=== PATIENT | female | born 1965 | race Caucasian/White ===

== ENCOUNTER 2020-09-12 06:29 | Outpatient (CLI) | payer BC ==
[~2020-09-12] VITALS: Ht 167.6 cm; Wt 79.5 kg
[2020-09-12] VITALS (10 sets, daily range): BP systolic 90–114; BP diastolic 61–78
[2020-09-12] MEDS ORDERED: LIDOCAINE 1% Multi-Dose 20 ML VIAL. ONE (07:45)
[2020-09-12] MEDS ORDERED: IODIXANOL 320 MG/ML 100 ML VIAL. ONE (07:45)
[2020-09-12] MEDS ORDERED: CETI10TA74 PO (07:59)
[2020-09-12] MEDS ORDERED: FLUT9.9S NS (07:59)
[2020-09-12] MEDS ORDERED: SULI150T PO (07:59)
[2020-09-12] MEDS ORDERED: LEVO50TA5 PO (07:59)
[2020-09-12] MEDS ORDERED: MAGN250T2 PO (07:59)
[2020-09-12] MEDS ORDERED: METO-239 PO (07:59)
[2020-09-12] MEDS ORDERED: ASCO100T4 PO (07:59)
[2020-09-12] MEDS ORDERED: COD1CAPS6 PO (07:59)
[2020-09-12 08:09] LABS: CALCIUM 9.2 mg/dL (8.5-10.1); CREATININE 0.8 mg/dL (0.6-1.0)
[2020-09-12] MEDS ORDERED: MIDAZOLAM HCL/PF 2 MG/2 ML VIAL. ONE ×2 (08:12→08:48)
[2020-09-12 08:15] LABS: PROTHROMBIN TIME PATIENT 12.3 SEC (11.7-14.0)
[2020-09-12] MEDS ORDERED: LIDOCAINE 1% Multi-Dose 20 ML VIAL. INJ ONE (08:15)
[2020-09-12] MEDS ORDERED: MIDAZOLAM HCL/PF 2 MG/2 ML VIAL. IV ONE (08:15)
[2020-09-12] MEDS ORDERED: IODIXANOL 320 MG/ML 100 ML VIAL. IART ONE (08:15)
[2020-09-12] MEDS ORDERED: ASPIRIN CHEWABLE 81 MG TABLET. ONE (08:26)
[2020-09-12] MEDS ORDERED: ASPIRIN CHEWABLE 81 MG TABLET. PO ONE (08:30)
[2020-09-12] MEDS ORDERED: NITROGLYCERIN SUBLINGUAL 0.4 MG BOTTLE OF 25. SL PRN (09:15)
[2020-09-12] MEDS ORDERED: ACETAMINOPHEN 325 MG TABLET. PO PRN (09:15)
[2020-09-12] MEDS ORDERED: IV NORMAL SALINE 1000ML BAG 1,000 ML IV SCH (09:15)
[2020-09-12] MEDS ORDERED: 0.9 % SODIUM CHLORIDE 10 ML DISP.SYRIN. IV PRN (09:15)
[2020-09-12] MEDS ORDERED: CONTRAST GIVEN. MC PRN (10:15)
--- NOTE | 2020-09-12 10:47 | NUR ---
Patient sat up in bed at 1015 per MD order. No bleeding, no pain at site, no sign of hematoma at this time.
[2020-09-12] MEDS ORDERED: ACETAMINOPHEN 325 MG TABLET. PO ONE (10:50)
--- NOTE | 2020-09-12 11:50 | NUR ---
Patient able to eat lunch, walk unit, use restroom. No bleeding or increased pain at site. No sign of hematoma. PIV removed. Instructions provided on site care, sedation. Patient and verbalized understanding. VS stable. All belongings taken w/ patient at time of d/c. driving home in private vehicle.
--- NOTE | 2020-09-20 13:44 | CARD ---
MR#: [id number] Date of Study: 09/12/2020 Ordering Physician: RAO JIMENES, Referring Physician: RAO JIMENES, Tech: RT Paul(R)() APPROVED REPORT Technologist: RT Paul(R)() Nurse: Virginia Valencia RN Procedure(s) performed: Left heart catheterization, selective left and right coronary angiography, reyes pervision of conscious sedation, measurement of left ventricular end-diastolic pressures FLUORO TIME 3.4MINS. DOSE 41.2GYCM2 MODERATE SEDATION 35 MIN. INDICATION The indication(s) include : positive stress test, atypical chest pain . [facility] Clinical Frailty Scale [facility] Clinical Frailty Scale: Well Heart Failure Heart Failure: No CASE TECHNIQUE The patient was brought electively into the cardiac catheterization lab. A timeout was performed conf irming the patient's name, date of , procedure, and site of procedure. All necessary parties wer e wearing the appropriate personal protective equipment and radiation monitoring devices. After expla ining the risks and benefits of the procedure, informed consent was obtained.(See nursing notes for m edications administered). The right groin was sterilely prepped and draped. The right femoral groin w as infiltrated with 1% Lidocaine subcutaneous anesthesia. IV conscious sedation was used throughout p rocedure with appropriate monitoring and was performed in the presence of a registered nurse who was an independent trained observer other than the physician performing the procedure. During this case, Fluoroscopy and Iso-osmolar contrast were used for imaging. Specimen(s) Removed: N/A Estimated Blood loss: 5 cc's. A 4 [place] sheath was inserted into the right femoral artery without difficulty. [place] ry angiography was performed using coronary diagnostic catheters. The left coronary system was access ed and visualized with a Diagnostic catheter. The right coronary system was accessed and visualized w ith a Diagnostic catheter. The left ventricle was accessed and visualized with a Diagnostic catheter. Left ventricular/Aortic Valve gradient assessed on pullback. Hemostasis was obtained with manual pre ssure following sheath removal without any complications. The patient tolerated the procedure well an d there were no complications associated with the procedure. Coronary Angiography The patient's coronary anatomy is right dominant. The left main coronary artery is a Moderate size vessel without significant stenosis . The left main bifurcates to the left anterior descending and circumflex. The left anterior descending artery is a Moderate caliber size vessel Type II in course and free of s ignificant high-grade stenosis as it courses in the anterior ventricular sulcus giving rise to septal diagonal branches. It tapers rapidly to a string size vessel nearing the distal third and apex. The first diagonal branch is a Small to moderate size vessel without stenosis. The circumflex artery is a Moderate size vessel with intimal irregularities and essentially normal. The right coronary artery is a large size vessel Of normal origin with mild luminal irregularities as it courses posteriorly to the crux of the heart and gives rise to posterior descending artery. It is free of high-grade lesions.. The right posterior descending artery is a Small to moderate caliber si ze vessel With mild irregularities with no high-grade lesion. The right posterolateral branch is a Sm all to moderate caliber size vessel With luminal irregularities present but no high-grade lesion. Left Ventriculography There was no gradient across the aortic valve upon pullback. Conclusion 1. Essentially normal coronary arteries with only mild plaquing noted 2. Abnormal hemodynamics elevated limited end-diastolic pressures 3. Branches are quite tortuous in course consistent with hypertensive heart disease Recommendations Cardiac Risk Reduction Program Medical Therapy Signed by : Rao Jimenes, Electronically Approved : 09/20/2020 13:44:25
== END 2020-09-12 11:55 | disposition home or self-care (01) ==
LOC: CCL 06:29
PROVIDERS: ATTEND Internal Medicine
DX: R07.9 Chest pain, unspecified (principal); I10 Essential (primary) hypertension; E78.00 Pure hypercholesterolemia, unspecified; J45.909 Unspecified asthma, uncomplicated; M19.90 Unspecified osteoarthritis, unspecified site; F41.9 Anxiety disorder, unspecified; F32.9 Major depressive disorder, single episode, unspecified; Z79.899 Other long term (current) drug therapy; Z88.0 Allergy status to penicillin; Z88.1 Allergy status to other antibiotic agents; Z88.8 Allergy status to other drugs, medicaments and biological substances; Z88.5 Allergy status to narcotic agent; Z98.890 Other specified postprocedural states
CPT/HCPCS: 36415; 80048; 85610; 93454; 99152; 99153; C1769; C1892; J1644; J2250; J3490; Q9967; 93458